=== PATIENT | female | born 2000 | race Hispanic/Latino ===

== ENCOUNTER 2019-03-04 08:33 | Emergency (ER) | payer MEDICAID, OTHER ==
[2019-03-04] MEDS ORDERED: Metoclopramide HCl 10 MG TAB ONE (08:56)
[2019-03-04 09:10] LABS: Bilirubin Negative (Negative); Blood, Urine Negative (Negative); Clarity Clear (Clear); Glucose, Urine (Dipstick) Normal (Negative); Leukocyte Negative Leu/uL (Negative); Nitrite Negative (Negative); Protein, Urine (Dipstick) Negative (Neg-Trace); Urobilinogen Normal mg/dL (Less than 2)
== END 2019-03-04 09:20 | disposition home or self-care (01) ==
LOC: ERS 08:33
DX: O99.89 Other specified diseases and conditions complicating pregnancy, childbirth and the puerperium (principal); R10.9 Unspecified abdominal pain; R51 Headache; Z3A.13 13 weeks gestation of pregnancy
CPT/HCPCS: 81003; J8597

== ENCOUNTER 2019-09-01 19:06 | Inpatient (IN) | payer OTHER ==
[2019-09-01] MEDS ORDERED: hydrALAZINE 20 MG/ML VIAL SLOW IVP PRN (19:20)
[2019-09-01] MEDS ORDERED: Ondansetron PF 4 MG/2 ML Vial IVP PRN (19:20)
[2019-09-01] MEDS ORDERED: Ibuprofen 800 MG TAB PO PRN (19:20)
[2019-09-01] MEDS ORDERED: Promethazine HCl 25 MG/ML VIAL IM PRN (19:20)
[2019-09-01] MEDS ORDERED: Lidocaine 1% (PF) 30 ML VIAL SC PRN (19:20)
[2019-09-01] MEDS ORDERED: Misoprostol 100 MCG TAB VAG SCH (19:30)
[2019-09-01] MEDS: Lactated Ringer's 1,000 ML IV SCH (19:30)
[2019-09-01 19:40] VITALS: BMI 36.8
[2019-09-01 19:45] LABS: Hemoglobin 11.9 g/dL (12.0-16.0); Mean Corpuscular HGB CONC 34.3 g/dL (32.0-36.0); Mean Corpuscular Hemoglobin 30.5 pg (25.0-35.0); Mean Corpuscular Volume 88.8 fL (78.0-98.0); Mean Platelet Volume 8.6 fL (7.4-10.4); Platelet Count 195 thou/uL (130-400); RBC Distribution Width 12.1 % (11.5-14.5); White Blood Cell (WBC) Count 15.1 thou/uL (4.8-10.8)
[2019-09-01 20:28] LABS: HBSAg Index 0.14 S/CO (0-0.99); Hep B Surf Ag Non-Reactive S/CO (NonReactive); Syphilis Antibody Nonreactive (Nonreactive); Syphilis Antibody Index 0.04 S/CO (<1.00 Non-Reactive)
[2019-09-01] MEDS: Misoprostol 100 MCG TAB VAG SCH (20:45)
--- NOTE | 2019-09-01 22:14 | PDOC.FPROB ---
FMR OB H&P: HPI - History of Present Illness Chief Complaint: Elective IOL Indentification: 18 yo @ by LMP/11.3 wks sono History of Present Illness: 18 yo @ 39.0 wks by LMP/11.3 week sono comes in for elective induction of labor. She says she has had no problems during her . She has had good movement. She has had no loss of fluid, vaginal bleeding, vaginal discharge, or contractions. Primary Care Physician: RIMMA Haider FMR OB H&P: Current - Care : 1 Para: 0 Gestational age: 39.0 Due date: 09/08/2019 Dating Criteria: 11.3 wk sono Total weight gain: 41lbs Course/Complications: anemia of resolved at this time. - OB Labs Blood type: O RH: positive Antibody Screen: negative HIV: negative RPR: negative HepBsAg: negative Rubella: immune Quad screen: unknown Urine drug screen: not done Gonorrhea: negative Chlamydia: negative 1 hour gtt: 151 3 hour GTT: 85/155/113/100 A1c: 5.2 GBS: negative H&H: 08/11- 12.3/35.8 Platelets: 08/11- 215 Additional labs: Pr/Cr ratio- 1654 Had e. coli bacturia with LAWRENCE negative. - First Trimester Ultrasound First trimester: 02/20/19- s=d. EDC 09/08/2019 - Anatomy Survey Anatomy survey: 04/29/19- s<d, EFW 3.3%. - Additional Ultrasound Additional: 06/12/19- EFW 1018g [place] 24%. 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 Not due for routine paps - Surgical History Sx History: None - Social History Social History: Denies any smoking, drinking or illicit drug use. - Family History Family History: None. No history of jaundice or asthma in the family. FMR OB H&P: Medications - Current Home Medications: Medication Instructions Recorded Confirmed Type Vit,Calc78/Iron/Folic 1 tab PO DAILY 09/01/19 09/01/19 History [Prenatabs FA Tablet] Allergies/Adverse Reactions: Allergies Allergy/AdvReac Type Severity Reaction Status Date / Time No Known Drug Allergies Allergy Verified 09/01/19 19:32 FMR OB H&P: ROS - Review of Systems General: denies: fever/chills Eyes: denies: vision changes ENT: denies: nasal congestion, rhinorrhea Cardiovascular: denies: chest pain, edema Respiratory: denies: cough, congestion, shortness of breath Gastrointestinal: denies: abdominal pain, indigestion, nausea, vomiting, diarrhea, constipation Genitourinary (Female): denies: dysuria, vaginal discharge, vaginal pain, vaginal bleeding, contractions Musculoskeletal: denies: pain, tenderness Neurologic: denies: numbness, weakness Integumentary: denies: itching, rash FMR OB H&P: Vital Signs - Maternal Vital signs: BP: 126/75 T: 98.8 HR: 120 - Heart Tones Baseline: 150 Variability: moderate Acceleration: present Deceleration: absent Category: category 1 FMR OB H&P: Physical Exam - Physical Exam General: NAD, awake, alert and oriented HEENT: normocephalic and atraumatic, PERRLA, EOMI, MMM, normal nasal mucosa, oropharynx clear Neck: supple, trachea midline, no LAD Heart: RRR, normal S1/S2, no murmurs/rubs/gallops, pulses present Deviation from normal: Trace edema General: CTAB, no respiratory distress, good air movement, no wheezing, no retractions Abdomen: soft, gravid, non-tender, bowel sound present Musculoskeletal: pulses present, FROM in all four extremities Neurological: cranial nerves II through XII intact Skin: no rash, no jaundice Lymphatic: no unusual bruising or bleeding, no purpura, no petechia, no LAD Psychiatric: normal mood and affect - Pelvic Exam SVE: FMR OB H&P: Results - Labs Lab results: Laboratory Results - last 24 hr 09/01/19 09/01/19 09/01/19 19:35 19:35 19:35 WBC RBC Hgb Hct MCV MCH MCHC RDW Plt Count MPV Syphilis IgG/IgM Ab Nonreactive Hep Bs Antigen Non-Reactive Blood Type O POSITIVE Antibody Screen NEGATIVE 09/01/19 09/01/19 19:35 19:50 WBC 15.1 H RBC 3.90 L Hgb 11.9 L Hct 34.7 L MCV 88.8 MCH 30.5 MCHC 34.3 RDW 12.1 Plt Count 195 MPV 8.6 Syphilis IgG/IgM Ab Hep Bs Antigen Blood Type O POSITIVE Antibody Screen FMR OB H&P: A/P - Problem List (1) Term Current Visit: Yes Status: Acute Code(s): Z34.90 - ENCNTR FOR SUPRVSN OF NORMAL , UNSP, UNSP TRIMESTER Disposition: 18 yo @ 39.0 wks by LMP/11.3 week sono comes in for elective induction of labor. 1. Induction of Labor for Term * Cervical check : @ 19:46 * Will place Cytotec * Will monitor strip * Baseline 150, mod variablitiy, accel present * Will monitor vitals Discussion: Date/Time: 09/01/192211 This H&P was discussed with Dr. Christiano Hernandez, PGY3, and Dr. Edouard Rodriguez, Att, who agree with the above documentation and plan. Addendum - Attending - Attending Attestation Date/Time: 09/01/191999 I personally evaluated the patient and discussed the management with Dr. Frye I agree with the History, Examination, Assessment and Plan documented above with any addition or exceptions noted below. 18 yo at 39 wk who presented for eIOL. complicated by glucose intolerance (positive 1 hr , neg 3 hr) and excessive weight gain. cytotec IOL due to poor lujan score. expectant management. most recent prot/cr ratio .16.
[2019-09-02] MEDS: Misoprostol 100 MCG TAB VAG SCH ×4 (00:16→22:49)
--- NOTE | 2019-09-02 00:55 | PDOC.LDPN ---
Labor & Delivery Progress Note - Subjective Subjective: comfortable - Objective Vital signs reviewed and normal: yes General: NAD, resting Uterine fundus: non tender SVE: / Dilation: 1 Effacement: 50% Station: -3 FHT: category 1 [place] contractions every: 2-3 minutes IUPC placed: yes FSE placed: yes - Assessment (1) Term Code(s): Z34.90 - ENCNTR FOR SUPRVSN OF NORMAL , UNSP, UNSP TRIMESTER Current Visit: Yes Status: Acute Plan: continue plan of care -: 18 yo @ 39.0 wks by LMP/11.3 week sono comes in for elective induction of labor. 1. Induction of Labor for Term * Cervical check : * 3 @ 19:46 * @ 00:16 * 2nd Cytotec placed * Will monitor strip * Baseline 140, mod variablitiy, accel present, Contractions every 2-3 minutes * Will continue to monitor vitals
[2019-09-02] MEDS: Lactated Ringer's 1,000 ML IV SCH ×3 (03:44→17:25)
--- NOTE | 2019-09-02 05:07 | PDOC.LDPN ---
Labor & Delivery Progress Note - Subjective Subjective: comfortable - Objective Vital signs reviewed and normal: yes General: NAD, resting Uterine fundus: non tender Dilation: 2 Effacement: 50% Station: -2 FHT: category 1 [place] contractions every: 2-3 minutes - Assessment (1) Term Code(s): Z34.90 - ENCNTR FOR SUPRVSN OF NORMAL , UNSP, UNSP TRIMESTER Current Visit: Yes Status: Acute Plan: continue plan of care -: 18 yo @ 39.0 wks by LMP/11.3 week sono comes in for elective induction of labor. 1. Induction of Labor for Term * Cervical check : * 09/06/-3 @ 19:46 * /-3 @ 00:16 * /-2 @ 03:50 * 3rd Cytotec placed * Will monitor strip * Baseline 130, mod variablitiy, accel present, Contractions every 2-3 minutes * Will continue to monitor vitals
--- NOTE | 2019-09-02 08:58 | PDOC.LDPN ---
Labor & Delivery Progress Note - Subjective Subjective: comfortable, no concerns - Objective Vital signs reviewed and normal: yes (BP 125/59) General: NAD, resting, breathing through contractions Uterine fundus: non tender SVE: 2/75/-2 @ 0800, then 4/75/-2 @0830 after SROM Dilation: 4 Effacement: 75% Station: -2 FHT: category 1, variability present [place] contractions every: 2-3 min Other exam findings: SROM @ 0830 with clear fluid Plan: continue plan of care -: 18 yo @ 39.1 wks by LMP/11.3 week sono comes in for elective induction of labor. 1. Induction of Labor for Term @ 39.1 weeks * Cervical check : * 09/06/-3 @ 19:46 * 50/-3 @ 00:16 * 2/60/-2 @ 03:50 * 2/75/-2 @ 08:00 * 4/75/-1 @ 08:30 * 3rd Cytotec placed at 03:50 * SROM at 08:30 * Will monitor strip * Baseline 145, mod variablitiy, accel present, Contractions every 2-3 minutes * Will continue to monitor vitals Dispo: Stable, continue expectant management. Consider starting pitocin at next check pending cervical check.
[2019-09-02] MEDS ORDERED: NS w/ Oxytocin 10 units 500 ML IV SCH (09:00)
--- NOTE | 2019-09-02 11:19 | PDOC.LDPN ---
Labor & Delivery Progress Note - Subjective Subjective: comfortable, painful contractions, no concerns - Objective Vital signs reviewed and normal: yes General: NAD, resting, breathing through contractions Uterine fundus: non tender SVE: 4/75/-2 @ 1030 Dilation: 4 Effacement: 75% Station: -2 FHT: category 1, variability present [place] contractions every: 3 min Plan: continue plan of care, pitocin for augmentation -: 18 yo @ 39.1 wks by LMP/11.3 week sono comes in for elective induction of labor. 1. Induction of Labor for Term @ 39.1 weeks Cervical check : 09/06/-3 @ 19:46--cytotec 50/-3 @ 00:16--cytotec 60/-2 @ 03:50--cytotec 75/-2 @ 08:00 75/-2 @ 08:30 75/-2 @ 10:30--start pitocin 3rd Cytotec placed at 03:50 SROM at 08:30 Will monitor strip Baseline 145, mod variablitiy, accel present, Contractions every 2-3 minutes Will continue to monitor vitals Plan to start Pitocin with this check Consider placing IUPC if no change at next check Dispo: Stable, continue expectant management. Will start pitocin. Plan to place IUPC if no change at next check.
[2019-09-02] MEDS: Butorphanol Tartrate 1 MG/ML VIAL SLOW IVP PRN ×2 (13:01→16:04)
--- NOTE | 2019-09-02 14:56 | PDOC.LDPN ---
Labor & Delivery Progress Note - Subjective Subjective: comfortable, painful contractions - Objective Vital signs reviewed and normal: yes General: NAD, resting, breathing through contractions Uterine fundus: non tender SVE: /-1 @ 1430 Dilation: 5 Effacement: 90% Station: -1 FHT: category 1, variability present [place] contractions every: 2 min IUPC placed: yes (@ [address] Momin) Plan: continue plan of care, pitocin for augmentation (set at 10) -: 18 yo @ 39.1 wks by LMP/11.3 week sono comes in for elective induction of labor. 1. Induction of Labor for Term @ 39.1 weeks Cervical check : 09/06/-3 @ 19:46--cytotec 50/-3 @ 00:16--cytotec 60/-2 @ 03:50--cytotec 75/-2 @ 08:00 75/-2 @ 08:30 75/-2 @ 10:30--start pitocin 75/-2 @ 12:30 /-1 @ 14:30--Pitocin set at 10, IUPC placed 3rd Cytotec placed at 03:50 SROM at 08:30, clear fluid Will monitor strip Baseline 135, mod variablitiy, accel present, Contractions every 2-3 minutes Will continue to monitor vitals Pitocin started at 10:30 on 09/02; currently set at rate of 10 IUPC placed at 14:30 (this check) Dispo: Stable, continue expectant management. Continuing titrating pitocin, currently set at 10. Placed IUPC with this check.
--- NOTE | 2019-09-02 16:55 | PDOC.LDPN ---
Labor & Delivery Progress Note - Subjective Subjective: comfortable, painful contractions - Objective Abnormal vital signs: Last 3 BP 131/78, 140/85, 144/90 General: NAD, resting, breathing through contractions Uterine fundus: non tender SVE: 7/100/0 @ 1630 Dilation: 7 Effacement: 100% Station: 0 FHT: early decelerations, variability present [place] contractions every: 2 min IUPC placed: yes Plan: continue plan of care, pitocin for augmentation -: 18 yo @ 39.1 wks by LMP/11.3 week sono comes in for elective induction of labor. 1. Induction of Labor for Term @ 39.1 weeks Cervical check : 09/06/-3 @ 19:46--cytotec /-3 @ 00:16--cytotec /-2 @ 03:50--cytotec 75/-2 @ 08:00 /-2 @ 08:30 /-2 @ 10:30--start pitocin /-2 @ 12:30 /-1 @ 14:30--Pitocin set at 10, IUPC placed 7/100/0 @ 16:30--Pitocin set at 14 (MVU 160) 3rd Cytotec placed at 03:50 SROM at 08:30, clear fluid Will monitor strip Baseline 145, mod variablitiy, accel present, 2 early decelerations present, Contractions every 2 minutes Will continue to monitor vitals Pitocin started at 10:30 on 09/02; currently set at rate of 14 IUPC placed at 14:30 2. Pre-Eclampsia r/o -BPs in previous checks in 120s/70s -Last 3 BP for this check 131/78, 144/90, 140/85 -will check Pre-E labs including CBC, CMP, urine protein & urine creatinine Dispo: Stable, continue expectant management. Continuing titrating pitocin, currently set at 14. IUPC in place.
[2019-09-02 17:50] LABS: ALT (SGPT) Less than 7 U/L (8-55); AST (SGOT) 13 U/L (5-34); Albumin 3.1 g/dL (3.5-5.0); Alkaline Phosphatase 244 U/L (40-100); Anion Gap 12 mmol/L (10-20); BUN (Urea Nitrogen) 6 mg/dL (7.0-18.7); Bilirubin, Total 0.3 mg/dL (0.2-1.2); Calc. Creatinine Clearance 184 mL/min (70-130); Carbon Dioxide 20 mmol/L (22-29); Chloride 108 mmol/L (98-107); Estimated GFR-MDRD Greater than 90; Globulin 3.2 g/dL (2.4-3.5); Glucose 141 mg/dL (70-105); Potassium 3.8 mmol/L (3.5-5.1); Protein, Total 6.3 g/dL (6.0-8.3); Sodium 136 mmol/L (136-145)
--- NOTE | 2019-09-02 18:27 | PDOC.LDPN ---
Labor & Delivery Progress Note - Subjective Subjective: painful contractions - Objective Vital signs reviewed and normal: yes General: breathing through contractions Dilation: anterior lip Effacement: 100% Station: 0 FHT: category 2, early decelerations (recurrent) [place] contractions every: 2-3 min Resuscitative measures: maternal IV fluids, maternal position change Plan: continue plan of care, pitocin for augmentation (pitocin at 18) -: cat 2 strip, was having lates, IV fluids and position change, now early decels, recovering after contractions continue plan of care no epidural in place recheck 30 min or sooner.
[2019-09-02] MEDS: NS / Oxytocin 40 units/1000ml 1,000 ML IV PRN ×2 (19:00→20:33)
[2019-09-02 19:28] LABS: Actual Bicarbonate (HCO3a) 23.3 mEq/L (22-28); Base Excess (BEa) -5.5 mEq/L (-2.0 to +3.0)
[2019-09-02 19:31] LABS: Actual Bicarbonate (HCO3v) 22 mEq/L (22-28); Base Excess -5.3 mEq/L (-2.0 to +3.0); pH (Cord, venous) 7.27 (7.32-7.43)
[2019-09-02 19:45] LABS: Creatinine, Urine 84.22 mg/dL (47-110)
--- NOTE | 2019-09-02 19:54 | PDOC.OPDEL ---
OB Operative/Delivery Note Delivery Dr/Surgeon: Meliza Pappas Assist: Jennifer (attending, present during entire delivery) Pre-Delivery Diagnosis: active labor Procedure/Post Delivery Dx: spontaneous vaginal delivery Weeks gestation: 39 Anesthesia: none - Additional Findings/Plan Placenta delivered: spontaneous Estimated blood loss: qbl 150 mL Compilations/Other Findings: Delivering Physician: Meliza Pappas (continuity, PGY3) Attending: Jennifer, present during entire delivery Procedure: Spontaneous Vaginal Delivery Anesthesia: none QBL: 150 ml Pre-op Diagnosis: 1. Term intrauterine in labor 2. Anemia of 3. Glucose intolerance of Post-op Diagnosis: 1. Term intrauterine , delivered 2. same as above Indications: A 18y/o female presents to L&D for elective induction Delivery Note: This is 18yo F @ 39 wks who delivered a viable F infant at 18:58. Following an uneventful antepartum course, a vigorous female was delivered over an intact perineum in the occipitoanterior position. Anterior Shoulder and then remainder of the body delivered. No nuchal cord. The head was held down and mouth and nares were bulb suctioned. Cord clamped, and cut and cord blood collected. Placenta delivered intact in the Xiao/Carrion presentation with a 3 vessel cord noted. Fundal massage was performed, and the fundus was firm. The cervix and vagina were inspected, and there was found one first-degree perineal laceration and bilateral periurethral tears. Lacerations were hemostatic and none required repair. Infant went to warmer and required stimulation, then went back to mother for [id number] in good condition. Apgars were 7/9 at 1 & 5 minutes, respectively. Patient tolerated delivery well and went to after routine recovery/care. Post delivery plan: routine recovery (ATTENDING ADDENDUM: I was present for the entire delivery. complicated by recurrent variables and late decels for approximately 45 min before delivery. required delee suctioning which resulted in minimal fluid return and aggressive stimulation. 7,9. umbilical artery gas appropriate. routine care for mom and baby.)
[2019-09-02] MEDS ORDERED: Benzocaine-Menthol 82.5 ML CAN TOP PRN (20:33)
[2019-09-02] MEDS ORDERED: Milk Of Magnesia 30 ML UDCUP PO PRN (20:33)
[2019-09-02] MEDS ORDERED: NS / Oxytocin 40 units/1000ml 1,000 ML IV SCH (20:33)
[2019-09-02] MEDS ORDERED: hydrALAZINE 20 MG/ML VIAL SLOW IVP PRN (20:33)
[2019-09-02] MEDS ORDERED: Lanolin Ointment 7 GM TUBE TOP PRN (20:33)
[2019-09-02] MEDS ORDERED: Bisacodyl 10 MG SUPP PR PRN (20:33)
[2019-09-02] MEDS ORDERED: Ondansetron PF 4 MG/2 ML Vial IVP PRN (20:33)
[2019-09-02] MEDS: Ibuprofen 800 MG TAB PO SCH (22:25)
[2019-09-02] MEDS: Docusate Calcium (SURFAK) 240 MG CAP PO SCH (22:26)
[2019-09-03] MEDS: Ibuprofen 800 MG TAB PO SCH ×3 (06:07→22:23)
[2019-09-03 06:40] LABS: Hemoglobin 10.5 g/dL (12.0-16.0)
--- NOTE | 2019-09-03 06:45 | PDOC.OBPPN ---
FMR OB PN: Subj - Interval History Day: 1 18 y/o @ 39.1 WGA delivered via @ 1858 on 09/02/19. Patient doing well. Denies abdominal pain, just reports some vaginal soreness. Reports minimal lochia. No flatus. She is ambulating, voiding, and tolerating PO. Denies N/V, SOB, chest pain, H/A. She does reports some LE swelling. FMR OB PN: Obj - Maternal Vital signs: BP: 112/56 HR: 108 RR: 18 Tmax: 98.5 Pox: 97% on RA Wt: 88.4kg - Urine output I&O: 09/01/19 09/02/19 09/03/19 06:59 06:59 06:59 Intake Total 1250 Output Total 377 Balance 873 FMR OB PN: Exam - Physical Exam General: NAD, awake, alert and oriented HEENT: MMM, conjunctiva clear, grossly normal vision, grossly normal hearing Neck: supple, no LAD Heart: RRR, normal S1/S2, no murmurs/rubs/gallops, pulses present, other (1+ pitting edema in BLE) General: CTAB, no respiratory distress, good air movement, no rales/rhonchi, no wheezing Abdomen: soft, fundus(cm) (firm below umbilicus), non-tender Musculoskeletal: pulses present Neurological: no focal deficit Skin: good tugor, capillary refill <2 seconds : appropriately tender Lymphatic: no unusual bruising or bleeding, no purpura Psychiatric: intact recent and remote memory, good judgement and insight FMR OB PN: Data - Labs Lab results: Laboratory Results - last 24 hr 09/02/19 09/02/19 09/02/19 17:12 18:58 19:25 Hgb Hct Bicarbonate Actual 23.3 ABG Base Excess -5.5 L VBG HCO3 VBG Base Excess Cord ABG pH 7.216 L Cord ABG PCO2 ([place]) 58.9 Cord VBG pH Cord VBG pCO2 Sodium 136 Potassium 3.8 Chloride 108 H Carbon Dioxide 20 L Anion Gap 12 BUN 6 L Creatinine 0.68 Estimated GFR (MDRD) Greater than 90 Glucose 141 H Calcium 9.0 Total Bilirubin 0.3 AST 13 ALT Less than 7 L Alkaline Phosphatase 244 H Serum Total Protein 6.3 Albumin 3.1 L Globulin 3.2 Albumin/Globulin Ratio 1.0 L U Random Total Protein 15 H Urine Creatinine 84.22 09/02/19 09/03/19 19:25 06:12 Hgb 10.5 L Hct 30.4 L Bicarbonate Actual ABG Base Excess VBG HCO3 22 VBG Base Excess -5.3 L Cord ABG pH Cord ABG PCO2 ([place]oxie) Cord VBG pH 7.27 L Cord VBG pCO2 48.8 Sodium Potassium Chloride Carbon Dioxide Anion Gap BUN Creatinine Estimated GFR (MDRD) Glucose Calcium Total Bilirubin AST ALT Alkaline Phosphatase Serum Total Protein Albumin Globulin Albumin/Globulin Ratio U Random Total Protein Urine Creatinine FMR OB PN: A/P - Problem List (1) Term delivered Current Visit: Yes Status: Acute Code(s): O80 - ENCOUNTER FOR FULL-TERM UNCOMPLICATED DELIVERY (2) Anemia Current Visit: Yes Status: Acute Code(s): D64.9 - ANEMIA, UNSPECIFIED Disposition: 1. Term Delivered -PNV -Ibuprofen for pain -Encourage ambulation -Encouraged breast feeding, but pt wishes to bottle feed -iron 2. Anemia Hb dropped from 11.9->10.5 -Continue iron Continue to monitor on Discussion: Date/Time: 09/03/19 0643 This H&P was discussed with Dr. Pavon who agrees with the above documentation and plan. Signature: Lakshmi Haider MD, PGY-3 Addendum - Attending - Attending Attestation Date/Time: 09/03/19 1031 I personally evaluated the patient and discussed the management with Dr. Haider I agree with the History, Examination, Assessment and Plan documented above with any addition or exceptions noted below - Patient without complaints. Afebrile VSS. A/P: 1) PPD#1 s/p - Continue routine care. Anticipate d/c in AM.
[2019-09-03] MEDS: Ferrous Sulfate 325 MG TAB PO SCH ×2 (08:53→17:13)
[2019-09-03] MEDS ORDERED: Adacel (T-DAP) 0.5 ML SYRINGE IM ONE (09:00)
[2019-09-03] MEDS: Docusate Calcium (SURFAK) 240 MG CAP PO SCH ×2 (09:16→22:23)
[2019-09-04] MEDS: Ibuprofen 800 MG TAB PO SCH ×2 (06:18→14:00)
--- NOTE | 2019-09-04 07:04 | PDOC.OBPPN ---
FMR OB PN: Subj - Interval History Day: 2 18 y/o @ 39.1 WGA delivered via @ 1858 on 09/02/19. Patient doing well. Denies abdominal pain, just reports some hip pain. Reports minimal lochia. No flatus. She is ambulating, voiding, and tolerating PO. Denies N/V, SOB, chest pain, H/A. She does reports some LE swelling. FMR OB PN: Obj - Maternal Vital signs: BP: 116/69 HR: 104 RR: 18 Tmax: 98.2 Pox: 98% on RA Wt: 88kg - Urine output I&O: 09/03/19 09/04/19 09/05/19 06:59 06:59 06:59 Intake Total 1250 1000 Output Total 377 Balance 873 1000 FMR OB PN: Exam - Physical Exam General: NAD, awake, alert and oriented HEENT: MMM, conjunctiva clear, grossly normal vision, grossly normal hearing Neck: supple, FROM Heart: RRR, normal S1/S2, no murmurs/rubs/gallops, pulses present, other (1+ pitting edema in BLE to knee) General: CTAB, no respiratory distress, good air movement, no rales/rhonchi, no wheezing Abdomen: soft, fundus(cm) (firm) Musculoskeletal: pulses present Neurological: no focal deficit Skin: good tugor, capillary refill <2 seconds Lymphatic: no unusual bruising or bleeding, no purpura Psychiatric: intact recent and remote memory, good judgement and insight FMR OB PN: A/P - Problem List (1) Term delivered Current Visit: Yes Status: Acute Code(s): O80 - ENCOUNTER FOR FULL-TERM UNCOMPLICATED DELIVERY (2) Anemia Current Visit: Yes Status: Acute Code(s): D64.9 - ANEMIA, UNSPECIFIED Disposition: 1. Term Delivered -PNV -Ibuprofen for pain -Encourage ambulation -Encouraged breast feeding, but pt wishes to bottle feed -iron 2. Anemia Hb dropped from 11.9->10.5 -Continue iron Anticipate d/c home today Discussion: Date/Time: 09/04/19 0703 This H&P was discussed with Dr. Pavon who agrees with the above documentation and plan. Signature: Lakshmi Haider MD, PGY-3 Addendum - Attending - Attending Attestation Date/Time: 09/04/19 5616 I personally evaluated the patient and discussed the management with Dr. Haider I agree with the History, Examination, Assessment and Plan documented above with any addition or exceptions noted below - Patient without complaints. Afebrile VSS. A/P: 1) PPD#2 s/p - doing well. Plan to d/c home today.
[2019-09-04 08:28] VITALS: BP 107/58; TEMP 98.8
[2019-09-04] MEDS: Docusate Calcium (SURFAK) 240 MG CAP PO SCH (08:54)
[2019-09-04] MEDS: Ferrous Sulfate 325 MG TAB PO SCH (08:55)
== END 2019-09-04 15:40 | disposition home or self-care (01) | DRG 807 ==
LOC: EEVIPCON 19:06 → L&D 19:06 → 3SW 09-02 21:49
PROVIDERS: ADMIT Family Medicine; ATTEND Family Medicine
PROC: 3E033VJ Introduction of Other Hormone into Peripheral Vein, Percutaneous Approach (ICD-10-PCS; 2019-09-01)
PROC: 10E0XZZ Delivery of Products of Conception, External Approach (ICD-10-PCS; principal; 2019-09-02)
PROC: 10H07YZ Insertion of Other Device into Products of Conception, Via Natural or Artificial Opening (ICD-10-PCS; 2019-09-02)
PROC: 3E0P7VZ Introduction of Hormone into Female Reproductive, Via Natural or Artificial Opening (ICD-10-PCS; 2019-09-02)
DX: O76 Abnormality in fetal heart rate and rhythm complicating labor and delivery (principal); Z37.0 Single live birth; Z3A.39 39 weeks gestation of pregnancy; O99.810 Abnormal glucose complicating pregnancy; O70.0 First degree perineal laceration during delivery; O99.013 Anemia complicating pregnancy, third trimester; D64.9 Anemia, unspecified
CPT/HCPCS: 36415; 51701; 80053; 82570; 82805; 84156; 85014; 85018; 85027; 86780; 86850; 86900; 86901; 87340; J0595; J2590

== ENCOUNTER 2023-12-17 18:22 | Emergency (ER) | payer OTHER, SELFPAY | END 2023-12-18 03:33 | disposition home or self-care (01) | LOC: ERS 18:22 | DX: B34.9 Viral infection, unspecified (principal); Z55.6 Problems related to health literacy | CPT/HCPCS: 36415; 62270; 70450; 76705; 80053; 81001; 82945; 83605; 83735; 84157; 84703; 85025; 85060; 87040; 87070; 87205; 89051; 96361; 96365; 96366; 96375; J0692; J1200; J1885; J2765; J3370; J3490; J7030 ==